=== PATIENT | female | born 1975 | race Caucasian/White ===

== ENCOUNTER 2017-07-09 20:52 | Emergency (ER) | payer BC ==
--- NOTE | 2017-07-09 20:53 | UC ---
Respiratory Complaint HPI - HPI Summary HPI Summary: 42 YEAR OLD FEMALE PRESENTS WITH COMPLAINS OF DRY COUGH, FEVER, AND CHILLS. - History of Current Complaint Stated Complaint: COUGH Time Seen by Provider: 07/09/17 20:53 Hx Obtained From: Patient Hx Last Menstrual Period: 10/12/15 Onset/Duration: Sudden Onset Severity Initially: Moderate Severity Currently: Moderate Pain Scale Used: 0-10 Numeric - 5 - Allergies/Home Medications Allergies/Adverse Reactions: Allergies Allergy/AdvReac Type Severity Reaction Status Date / Time No Known Allergies Allergy Verified 07/09/17 20:58 PMH/Surg Hx/FS Hx/Imm Hx - Surgical History Surgical History: Yes Surgery Procedure, Year, and Place: RIGHT KNEE ACL RECONSTRUCTION 1993, RT SHOULDER ARTHROSCOPY/DEBRIDEMENT 2012 - Social History Alcohol Use: Rare Substance Use Type: None Smoking Status (MU): Never Smoked Tobacco Review of Systems Constitutional: Negative Skin: Negative Eyes: Negative ENT: Nasal Discharge, Sinus Congestion, Sinus Pain/Tenderness Respiratory: Cough Cardiovascular: Negative Gastrointestinal: Negative Genitourinary: Negative Motor: Negative Neurovascular: Negative Musculoskeletal: Negative Neurological: Negative Psychological: Negative All Other Systems Reviewed And Are Negative: Yes Physical Exam Triage Information Reviewed: Yes Vital Signs Reviewed: Yes Eye Exam: Normal ENT Exam: Normal Dental Exam: Normal Neck exam: Normal Neck: Positive: 1 Respiratory: Positive: Rhonchi, Wheezing Cardiovascular Exam: Normal Abdominal Exam: Normal Musculoskeletal Exam: Normal Neurological Exam: Normal Psychological Exam: Normal Skin Exam: Normal Respiratory Course/Dx - Differential Dx/Diagnosis Provider Diagnoses: BRONCHITIS. SINUS CONGESTION Discharge - Discharge Plan Condition: Stable Disposition: HOME Prescriptions: Amoxicillin/Clavulanate TAB* [Augmentin TAB 875*] 875 mg PO BID #20 tab LoraTADine TAB(NF) [Claritin 10 MG TAB(NF)] 10 mg PO DAILY #30 tab guaiFENesin/CODIEN 100MG-10MG* [Robitussin AC 100Mg-10Mg*] 5 ml PO Q8H PRN #120 ml MDD 15 ML PRN Reason: Cough Patient Education Materials: Allergic Rhinitis (ED), Cold Symptoms (ED) Referrals: Nishant Vanegas MD [Primary Care Provider] -
[2017-07-09 20:58] VITALS: BP 115/66
[2017-07-09] MEDS ORDERED: Amoxicillin/Clavulanate TAB* 875 MG PO ONE (21:05)
[2017-07-09] MEDS ORDERED: guaiFENesin/CODIEN 100MG-10MG* 5 ML UDC PO ONE (21:05)
[2017-07-09] MEDS ORDERED: LoraTADine TAB(NF) 10 MG TAB (AUTOSUB to CETIRIZINE) PO ONE (21:06)
== END 2017-07-09 21:29 | disposition home or self-care (01) ==
LOC: UCEAST 20:52
DX: J40 Bronchitis, not specified as acute or chronic (principal); R09.81 Nasal congestion
CPT/HCPCS: 99212; A9270-GY; G0463

== ENCOUNTER 2018-06-20 08:05 | Day surgery (SDC) | payer BC, OTHER ==
[~2018-06-20 08:05] MED LIST: Buffered Lidocaine 0.9% SYRIN* 5 ML/SYR SYRINGE INTRADERM ONE; Famotidine IV* 10 MG/ML 2 ML (20 mg) IV ONE; Famotidine IV* 10 MG/ML 2 ML (20 mg) ONE
[2018-06-20] MEDS ORDERED: Dexamethasone IV* 4 MG/ML 1 ML (4 MG) ONE (08:30)
[2018-06-20] MEDS ORDERED: KETAMINE HCL* 50 MG/ML 10 ML VIAL ONE (08:30)
[2018-06-20] MEDS ORDERED: fentaNYL* 50 MCG/ML 2 ML VIAL (100 MCG VIAL) ONE (08:30)
[2018-06-20] MEDS ORDERED: Lidocaine 2% PF * 5 ML VIAL ONE (08:30)
[2018-06-20] MEDS ORDERED: Ondansetron INJ* 2 MG/ML VIAL ONE (08:30)
[2018-06-20] MEDS ORDERED: Ketorolac INJ* 30 MG/ML 1 ML VIAL ONE (08:30)
[2018-06-20] MEDS ORDERED: Propofol* 10 MG/ML 20 ML BTL IV PUSH ONE (08:30)
[2018-06-20] MEDS ORDERED: Midazolam* 1 MG/ML 5 ML VIAL (5 MG) ONE (08:31)
[2018-06-20] MEDS ORDERED: ceFAZolin 1 GM VIAL(*) ONE (08:44)
[2018-06-20] MEDS ORDERED: ceFAZolin 2 GM PREMIX (*) 2 GM/50 ML BAG IVPB ONE (08:44)
[2018-06-20] MEDS ORDERED: Cisatracurium* 2 MG/ML MDV 5 ML ONE (09:05)
[2018-06-20] MEDS ORDERED: Lidocaine 1% INJ* 10 MG/ML 30 ML SDV ONE (09:14)
[2018-06-20] MEDS ORDERED: Bupivacaine 0.5%* 50 ML VIAL ONE (09:14)
[2018-06-20] MEDS ORDERED: Ondansetron INJ* 2 MG/ML VIAL IV PRN (10:07)
[2018-06-20] MEDS ORDERED: oxyCODONE/Acetamin 5/325 MG* TAB PO PRN (10:07)
[2018-06-20] MEDS ORDERED: Naloxone* 0.4 MG/ML 1 ML VIAL IV PRN (10:07)
[2018-06-20] MEDS ORDERED: oxyCODONE/Acetamin 5/325 MG* TAB ONE (12:07)
[2018-06-20 12:38] VITALS: BP 124/79
--- NOTE | 2018-06-21 00:53 | OP ---
DATE OF OPERATION: 06/20/18 - [facility] DATE OF : 77 SURGEON: Rey Frye DPM FRENCH CORD BINDER: None. ANESTHESIA: General. PRE-OP DIAGNOSES: 1. 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 2. 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 POST-OP DIAGNOSES: 1. 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 2. 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 OPERATIVE PROCEDURE: 1. Excision of calcaneal bone spurs from the posterior left heel. 2. Debridement and repair of the Achilles tendon with Mitek bone anchors on the left heel. 3. Application of fiberglass [id number] posterior splint on the left. INDICATIONS: The patient with chronic pain and bone spur proliferation at the posterior calcaneus as well as partial tear and chronic tendinosis at the insertion of the left Achilles tendon posterior left heel. The patient has had years of chronic pain and hypertrophy of the bone making it painful to wear shoes and walk. She opts for surgery at this time to attempt to decrease the pain and improve her function. PATHOLOGY: Degenerative bone from posterior calcaneus. MATERIALS: Two of the GII Mitek bone anchors. DESCRIPTION OF PROCEDURE: The patient was brought to the operating room and general anesthesia was administered and she was intubated and then carefully placed in the prone position on the operating room table and secured. The left foot was then prepped and draped in the usual fashion. Next, the left foot and leg were elevated and an Esmarch bandage was utilized to exsanguinate the left foot and leg and the pneumatic thigh tourniquet was inflated to 300 mmHg about a well-padded left thigh. At this time, local anesthetic block with 1:1 mixture of 1% lidocaine and 0.5% Marcaine plain was administered in the regional block. Next, attention was directed to the posterolateral aspect of the left heel where a curvilinear incision was made. Dissection was carried into the subcutaneous tissues with care being taken to retract neurovascular structures and cauterize superficial bleeders as needed. Dissection was carried down to the deep fascia to the lateral aspect of the insertion of the Achilles tendon where the deep fascia was incised and the tendon was reflected to allow for exposure of the posterosuperior body of the calcaneus and ultimately a portion of the Achilles tendon also had to be reflected off the calcaneus to adequately access the spurring. There was some fibrous tissue that was debrided from the posterior aspect of the Achilles tendon. Next, using a sagittal saw, the posterosuperior body of the calcaneus was hypertrophied and was resected with a sagittal saw as well as the spur at the insertion of the Achilles. This was sent off the field as a specimen. Using a rongeur as well as hand rasp, the calcaneus was further resected until there were no remaining sharp edges and hypertrophy was adequately reduced. The surgical site was flushed with copious amounts of normal sterile saline. A C- arm was used to visualize and ensure no remaining bone fragments or hypertrophy was present. This was also visually inspected. Next, 2 of the GII Mitek bone anchors were implanted using standard technique into the posterior aspect of the Achilles. The associated suture was used to then secure the Achilles tendon to the calcaneus. Size 0 Vicryl suture was also used to repair and reattach the margins of the Achilles tendon. The subcutaneous tissues were reapproximated and secured with 4-0 Vicryl and the skin was closed with 3-0 and 4-0 nylon. The incision was dressed with Xeroform gauze and a sterile mildly compressive dressing was applied and secured with Coban wrap. Next, a well- padded 5-inch fiberglass [id number] posterior splint was applied and secured with Esa wrap with the ankle in a slightly plantarflexed position. Prior to application of the splint, the pneumatic thigh tourniquet was deflated and a prompt hyperemic response was noted to all 5 digits of the patient's left foot. The patient was then carefully rotated to the supine position on the postop cart and having appeared to tolerate the procedures and anesthesia well, she was transported via cart from the operating room to Recovery in satisfactory condition with capillary refill less than 3 seconds to all digits of the left foot. [id number]/[facility] #: [id number] RODRIGO
--- NOTE | 2018-06-21 10:52 | RAD ---
INDICATION: Excision of a calcaneal bone spur debridement and repair of Achilles tendon left foot, M 79.62 COMPARISONS: MRI dated April 06, 2016 TECHNIQUE: Fluoroscopy was provided for a surgical procedure. Total fluoroscopy time is: 25 seconds FINDINGS: Spot images demonstrate calcaneal enthesophytes. IMPRESSION: FLUOROSCOPY WAS PROVIDED FOR A SURGICAL PROCEDURE CPT II Codes: G9500
== END 2018-06-20 13:20 | disposition home or self-care (01) ==
LOC: OREAST 08:05
PROVIDERS: ATTEND Podiatrist Foot Surgery
DX: M92.62 Juvenile osteochondrosis of tarsus, left ankle (principal); M76.62 Achilles tendinitis, left leg; M77.52 Other enthesopathy of left foot and ankle; S86.012A Strain of left Achilles tendon, initial encounter; X58.XXXA Exposure to other specified factors, initial encounter; Y92.9 Unspecified place or not applicable; R00.2 Palpitations; K21.9 Gastro-esophageal reflux disease without esophagitis; F41.8 Other specified anxiety disorders; Z87.891 Personal history of nicotine dependence; M19.90 Unspecified osteoarthritis, unspecified site
CPT/HCPCS: 76000; 81025; 88304; 88311; A9270-GY; C1713; J0690; J1100; J1885; J2250; J2405; J2704; J3010